=== PATIENT | male | born 1980 | race Caucasian/White ===

== ENCOUNTER → 2020-07-04 | Outpatient (CLI) | payer OTHER ==
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
== END ==
LOC: DXRAD 15:29
PROVIDERS: ATTEND Physician Assistant
DX: M20.5X2 Other deformities of toe(s) (acquired), left foot (principal); M79.89 Other specified soft tissue disorders
CPT/HCPCS: 73140